=== PATIENT | female | born 1995 | race Caucasian/White ===

== ENCOUNTER 2024-09-19 13:46 | Emergency (ER) | payer MEDICAID ==
[2024-09-19 13:56] VITALS: BP 110/70; PULSE 111; RESP 18; TEMP 99; O2SAT 95
--- NOTE | 2024-09-19 14:02 | ERN ---
ED Note History of Present Illness Stated Complaint: PAINFUL LUMP Chief Complaint: Abscess Time Seen by MD: 13:54 Time Seen by Midlevel: 13:50 Allergies: Coded Allergies: No Allergy Information Available (Unverified Allergy, Unknown, 09/19/24) No Known Drug Allergies (Unverified Allergy, Unknown, 09/19/24) Past Medical History Past Medical History: Other Additional Past Medical Hx: PSEUDO HYPOTHYRODISM, Developmental delay Surgical History: Other Surgical History Other: DENTAL SX X3 RN Note Reviewed/Agreed w/PFSH: Yes Review of System Dictation REVIEW OF SYSTEMS: CONSTITUTIONAL: Patient denies fevers, chills, sweats and weight changes. EYES: Patient denies any visual symptoms. EARS, NOSE, AND THROAT: No difficulties with hearing. No symptoms of rhinitis or sore throat. CARDIOVASCULAR: Patient denies chest pains, palpitations, orthopnea and p aroxysmal nocturnal dyspnea. RESPIRATORY: No dyspnea on exertion, no wheezing or cough. GI: No nausea, vomiting, diarrhea, constipation, abdominal pain, hematochezia or melena. : No urinary hesitancy or dribbling. No nocturia or urinary frequency. No abn ormal urethral discharge. MUSCULOSKELETAL: No myalgias or arthralgias. NEUROLOGIC: No chronic headaches, no seizures. Patient denies numbness, tingling or weakness. PSYCHIATRIC: Patient denies problems with mood disturbance. No problems with anxiety. ENDOCRINE: No excessive urination or excessive thirst. DERMATOLOGIC: Reports painful lesion to left axilla Initial Vital Sign VS Vital Signs Date Time Temp Pulse Resp B/P (MAP) Pulse Ox O2 Delivery O2 Flow Rate FiO2 09/19/24 13:52 111 16 110/70 95 Room Air 09/19/24 13:56 99.0 0 21 Physical Exam Dictation Vital signs: Reviewed. Temp 99 Constitutional: No acute distress. Non-toxic appearing. Head/Face: Normocephalic, atraumatic. Eyes: Periorbital areas with no swelling, redness, or edema. Lids and lashes are normal. Conjunctival injection is absent. Sclera anicteric. Pupils equal, round, reactive to light. ENT: Pinnas intact and no signs of trauma or erythema. Ear canals clear and no discharge. TMs no erythema. No nasal discharge or bleeding noted. Oropharynx with no exudate, redness, swelling, masses, exudates, or evidence of obstruction. Uvula midline. Mucous membranes moist. Neck: Trachea midline, no masses palpated, and no cervical lymphadenopathy. No swelling. Supple, full range of motion. Chest/Axilla: No tenderness, no crepitus, no paradoxical movement, no retractions. Cardiovascular: Regular rate, regular rhythm, no murmur, no gallops. Symmetric pulses. No peripheral edema. HR 111. Respiratory: Respirations even and unlabored. Lung sounds clear; no wheezes, rales or rhonchi. room air spo2 95% Gastrointestinal: Inspection is normal. No distention is appreciated. Bowel sounds are normal. No mass or organomegaly . There is no tenderness. No rebound. No rigidity. No voluntary or involuntary guarding. No Capps's sign. Neurological: Normal speech, gross motor function intact, gross sensory function intact. No focal weakness/Paresthesia. Musculoskeletal/Extremities: All extremities have full range of motion, no pain or tenderness on palpation. Symmetric pulses. Integumentary: Skin is normal color, warm and dry. Cap refill less than 3 seconds. Left axilla with non fluctuant lesion approximately2.5cm with 2 small lesions adjacent. There is no open wound or drainage. There is no surrounding erythema or warmth. Tender to touch. ED Course ED Course Orders Procedure Category Date Status Time Sulfamethox-Tmp Ds PHA 09/19/24 Complete 800/160 Tab (Bactrim 14:30 Acetaminophen 325 Tab PHA 09/19/24 Complete (Tylenol 325mg Tab 14:30 Ibuprofen (Motrin) PHA 09/19/24 Complete 14:30 Current Medications Medications (Trade) Dose Ordered Sig/Timothy Route PRN Reason Start Time Stop Time Status Last Admin Dose Admin Acetaminophen (TYLenol 325MG TAB) 650 mg ONCE ONCE PO 09/19/24 14:30 09/19/24 14:31 DC 09/19/24 14:19 Ibuprofen (moTRIN) 400 mg ONCE ONCE PO 09/19/24 14:30 09/19/24 14:31 DC 09/19/24 14:19 Trimethoprim/ Sulfamethoxazole (BactRIM DS) 1 tab ONCE ONCE PO 09/19/24 14:30 09/19/24 14:31 DC 09/19/24 14:20 Vital Signs Date Time Temp Pulse Resp B/P (MAP) Pulse Ox O2 Delivery O2 Flow Rate FiO2 09/19/24 14:19 99.0 09/19/24 13:56 99.0 111 18 110/70 95 Room Air* 0 21 09/19/24 13:52 111 16 110/70 95 Room Air Uneventful ED course. Examination revealed non fluctuant abscess formation/folliculitis to left axilla. No open wound or drainage. Patient received initial dose Bactrim DS as well as Tylenol/Motrin. Discussed findings with parents; health care worker. We will continue to monitor for signs of worsening infection/systemic infection and follow up with PCP. They will return to the emergency department for any worsening of symptoms or concerns. Prescriptions for Bactrim and ibuprofen have been sent to the pharmacy. Medical Decision Making MDM MDM: Differential diagnosis: Abscess, folliculitis, cellulitis Rationale: Tests considered and ordered secondary to shared decision making include: Examination Previous outside records reviewed: Old ER visits. Risk of complication and/or morbidity or mortality of patient management: None Medications-Per medication reconciliation Need for hospitalization: Patient does not meet criteria for hospitalization. Need for emergency major/minor surgery: No There are no social concerns with this patient. Prescription drug management: Bactrim DS, ibuprofen Prescriptions will include symptomatic care Patient's prior external medical records from other ER visits were reviewed by me as indicated. Prior testing and results from previous visits were reviewed. Prior tests were taken into account with medical decision making and resource utilization, independent historian/historians were used to obtain complete medical history. I independently interpreted the test that were performed, results were reviewed by me and considered findings on radiology if ordered. Medical management and examination interpretation discussions were had by me with other qualified healthcare professionals as indicated for the patient's care. DX & DISP Disposition: Discharge Departure Impression: Primary Impression: Abscess of axilla, left Additional Impression: Folliculitis Condition: Stable Scripts Ibuprofen (Ibuprofen) 600 Mg Tablet 400 MG PO Q6H PRN for PAIN, #16 TAB 0 Refills Prov: HOLLEY MELO NP 09/19/24 Sulfamethoxazole/Trimethoprim (Bactrim Ds Tablet) 800 Mg-160 Mg Tablet 1 TAB PO BID for 10 Days, #20 TAB 0 Refills Prov: HOLLEY MELO NP 09/19/24 HOLLEY MELO BLACK TOPPER Sep 19, 2024 14:01
[2024-09-19] MEDS: ibuPROFEN 400 MG TABLET PO ONE (14:19)
[2024-09-19] MEDS: acetaMINOPHEN 325 MG TAB PO ONE (14:19)
[2024-09-19 14:20] VITALS: TEMP 99
[2024-09-19] MEDS: sulfaMETHOX-TMP DS 800/160 TAB PO ONE (14:20)
[2024-09-19] MEDS ORDERED: SULF1TAB42 PO (15:18)
[2024-09-19] MEDS ORDERED: IBUP-2070 PO (15:18)
== END 2024-09-19 15:21 | disposition home or self-care (01) ==
LOC: EDH 13:46
DX: L02.412 Cutaneous abscess of left axilla (principal); L73.9 Follicular disorder, unspecified
CPT/HCPCS: 99284